=== PATIENT | male | born 1965 | race Caucasian/White ===

== ENCOUNTER 2019-04-23 13:45 | Day surgery (SDC) | payer OTHER, SELFPAY ==
[2019-04-23 14:14] VITALS: BP 137/91; PULSE 89; RESP 15; TEMP 36.3; O2SAT 99; BMI 25.6
[2019-04-23] MEDS: SODIUM CHLORIDE 0.9% 1,000 ML 100 ML IV (14:15)
[2019-04-23] MEDS: MIDAZOLAM 5 MG/5 ML VIAL IV (15:10)
[2019-04-23] MEDS: fentaNYL 250 MCG/5 ML INJ IV (15:11)
[2019-04-23 15:13] VITALS: BP 144/95; PULSE 95; RESP 15; TEMP 36.6; O2SAT 97
[2019-04-23 15:17] VITALS: BP 130/92; PULSE 94; RESP 12; TEMP 36.6; O2SAT 97
--- NOTE | 2019-04-23 15:17 | PM.HP.1 ---
History of Present Illness History of Present Illness Date Patient Seen: 04/23/19 Time Patient Seen: 15:17 Chief complaint: [id number] Narrative: Patient presents for colorectal screening. They have never had any previous examination for such. On further history denies any recent gastrointestinal symptoms. No nausea, vomiting, abdominal pain, loss of appetite, unexplained weight loss, change in bowel habits, diarrhea, constipation, melena, hematochezia, or bright red blood per rectum. Patient History Family & Social History Social History: household members spouse Meds Home Medications and Allergies Home Medications Medication Instructions Recorded Confirmed Type No Known Home Medications 04/23/19 04/23/19 History Allergies Allergy/AdvReac Type Severity Reaction Status Date / Time No Known Drug Allergies Allergy Verified 04/23/19 14:06 Review of Systems Review of Systems ROS Unobtainable: All systems reviewed & are unremarkable except as noted in HPI and below Exam Vital Signs (past 8 hours): - 04/23/19 14:14 Temperature 97.3 F L Pulse Rate 89 Respiratory Rate 15 Blood Pressure 137/91 H Pulse Oximetry 99 Oxygen Delivery Method Room Air Narrative Exam Narrative: General-no acute distress, well nourished HEENT-moist mucous membranes, no scleral icterus Neck-supple, no lymphadenopathy Chest- non labored respirations, clear to auscultation bilaterally Cardiac-regular rate no peripheral edema Abdomen-soft, nontender, non distended Extremities-warm, well perfused Neurological-alert and oriented, no focal deficits Assessment & Plan Assessment and plan (1) Screening for colon cancer: Current visit: Yes Status: Acute Assessment & Plan narrative: The patient requires colorectal screening and colonoscopy is recommended. Technical details were discussed. Risks, benefits, alternatives explained. Risks including but not limited to myocardial infarction, aspiration, bleeding, pain, missed lesion, incomplete examination, need for further radiographic studies, colonic perforation, and need for major abdominal surgery were discussed. All questions were answered to their satisfaction, and they are in agreement with this plan.
--- NOTE | 2019-04-23 15:19 | P.OP.ENDO_ITS ---
Operative Date/Time/Diagnoses Date of procedure: 04/23/19 Time of procedure: 15:19 Pre-op diagnosis: Screening colonoscopy Post-op diagnosis: same Procedure & Clinicians Study performed: Colonoscopy Same procedure as scheduled: Yes Indications: This 54-year-old male no previous colonoscopy presents for screening today. Surgeon: Charli Enriquez Procedure Notes SCOAP/Timeout: Perform Procedure in detail: Patient placed in left lateral decubitus position. Time out was performed. Procedural sedation was administered with Versed and Fentanyl. A rectal exam demonstrated no external hemorrhoids no internal masses. [place] noscopy scope was placed into the rectum and advanced through the colon to the cecum. The ileocecal valve was identified. The scope was then slowly withdrawn examining colon thoroughly in all directions. The colonoscopy was notable for the following 1. Grade 1 internal hemorrhoids 2. Quality of prep excellent Scope withdrawal time: 7 Sedation minutes: 20 Findings: internal hemorrhoids Specimen(s): none sent Complications: none Impression: Normal colonoscopy Post-procedure Recommendations: Colonscopy in 10 years Disposition: same day surgery
[2019-04-23 15:22] VITALS: BP 118/83; PULSE 90; RESP 14; TEMP 36.6; O2SAT 98
== END 2019-04-23 15:40 | disposition home or self-care (01) ==
PROVIDERS: PCP Family Medicine; Visit Provider Surgery
PROC: 0DJD8ZZ Inspection of Lower Intestinal Tract, Via Natural or Artificial Opening Endoscopic (ICD-10-PCS; CPT 45378; principal; 2019-04-23 15:15)
DX: Z12.11 Encounter for screening for malignant neoplasm of colon (principal)
CPT/HCPCS: 45378; 99152; J2250; J3010